=== PATIENT | male | born 1955 | race Caucasian/White ===

== ENCOUNTER 2018-05-19 12:24 | Emergency (ER) | payer BC, SELFPAY ==
[2018-05-19 12:28] VITALS: BP 82/44; PULSE 82; RESP 24; TEMP 36.5; O2SAT 94; BMI 40.3
[2018-05-19 12:36] VITALS: BMI 33.9
--- NOTE | 2018-05-19 12:37 | CT_ITS ---
, CT angio chest CT angio abdomen pelvis Additional processing and review on independent workstation Ordering Physician: Loy Keys MD Patient Age: 62 years: Male HISTORY: ITS.REASON: Pain left testicular pain left groin abdominal pain No significant mediastinal adenopathy nor hilar adenopathy. No pleural effusion. Ribs chest wall satisfactory. Degenerative disc changes upper T-spine otherwise T-spine unremarkable TECHNIQUE: CTA chest abdomen and pelvis performed Following bolus administration of 100 cc Isovue [address] thin section scanning performed through the chest abdomen pelvis and continuing to the groin.. No oral nor IV contrast utilized. Axial sagittal and coronal reconstructions performed on CT workstation. Additional reconstructions performed by Dr. Martin on radiologist workstation. ... [address] scans at this facility used one or more dose reduction techniques , viz: automatic exposure control, ma/Kv adjustment per patient's size, (including targeted exam where dose matched to the indication; i.e. head); or iterative reconstruction technique COMPARISON :None ======= CTA CHEST . Thoracic aorta normal caliber no aneurysm. No dissection. Pulmonary arteries are fairly well visualized and appears satisfactory. No pulmonary embolism. . Heart upper normal in size, borderline cardiomegaly.., coronary artery calcifications. No pericardial effusion. . Lungs. Bibasilar atelectasis and mild chronic changes throughout the lung brower bilaterally. Minimal density at lingula appears to be related to linear scarring anteriorly CTA ABDOMEN PELVIS Imaging continues to the abdomen and pelvis. No aortic aneurysm. There is mild to moderate crescentic atheromatous plaque at the posterior aspect of the aorta just above bifurcation. This yields estimated 35% cross section stenosis. Possibly up to 40%. Mild to moderate Atherosclerotic calcifications throughout the aorta and iliacs. The external and internal iliac arteries with minimal calcified plaque throughout.. The SMA and celiac artery widely patent. The right and left renal artery widely patent. No significant stenosis. ------- Liver spleen pancreas adrenals and kidneys with no significant findings. Small umbilical hernia. Moderate stool throughout colon, ileum and appendix normal.Generous stool throughout the left colon and sigmoid The significant finding this patient is .. Necrotizing fasciitis at left perineum: . extensive stippled gas throughout the subcutaneous tissues at the left perineum. This stippled gas collection extends posteriorly towards the buttocks, and anteriorly to the left hemiscrotum and then continues to the left inguinal canal up to the left inguinal ring. This line of stippled gas extending to the left hemiscrotum yields a rim of gas surrounding the left testicle. Left testicle has normal flow of subcutaneous ultrasound. There is soft tissue swelling at the left hemiscrotum. Possibly minimal fluid left hemiscrotum There is surprisingly modest reactive inflammation surrounding these areas of abnormal stippled gas at the.. And we do not see coalescence is would be seen with the mature abscess. No fluid levels are seen in these areas this this may have occurred relatively recently. Images were discussed with surgeon and ER physician. . On the CT workstation explored for any potential fistula or communication with the perirectal space or rectum and I do not identify such. This extensive area of stippled gas spans at least 17 cm AP if not greater, at the perineum itself. Additional 12-13 cm AP extension. Including the left hemiscrotum. IMPRESSION...... 1. Findings compatible with extensive Necrotizing Fasciitis There is extensive stippled gas
--- NOTE | 2018-05-19 12:46 | US_ITS ---
US scrotum Ordering Physician: Loy Keys MD Patient Age: 62 years: Male HISTORY: ITS.REASON: left scrotal swelling TECHNIQUE: Ultrasound both right left hemiscrotum COMPARISON :CT from today abdomen pelvis and including testicles FINDINGS . This study was used to confirm adequate color Doppler flow to both testicles. Particular attention directed to the LEFT TESTICLE Normal color doppler flow at the left testicleThis this was observed on with my scanning. The testicle itself measures up to 3.2 cm length x 2.5 cm. Head Epididymis appears normal on left. 9 mm. The body and tail the epididymis appears mildly thickened There is some swelling of the soft of the left hemiscrotum itself; and the tissue surrounding the left testicle. Also stippled gas yields shadowing surrounding the left testicle. RIGHT TESTICLE. Normal size with normal color Doppler flow. 3.6 cm in length. . Head of right epididymis measuring 9.3 x 7.5 mm with some scant fluid adjacent to it IMPRESSION: There is normal flow to both testicles. Specifically left testicle with normal color Doppler flow. This is a primary focus of this exam The left testicle demonstrates stippled gas are evident as seen on CT. On also note swelling and thickening of regional soft tissues at left hemiscrotum and about the left testicle. Body and tail of left epididymis appear somewhat edematous thickened .
--- NOTE | 2018-05-19 12:48 | [facility].EDGENADL ---
ED Disposition Clinical Impression: Cellulitis, scrotum, Diabetes, Systemic inflammatory response syndrome (SIRS), CAD (coronary artery disease), Renal insufficiency, Necrotizing fasciitis Disposition: Xfer Short-Term Hosp Condition on Discharge: Good Forms: Transfer Record - ED - Critical Care Critical Care Time: No Attestation: On , the high probability of a clinically significant, sudden or life threatening deterioration of the following system(s) required my full and direct attention, intervention and personal management. The time I documented below is in addition to time spent performing reported procedures but includes the following listed in this critical care notation. Total Critical Care Time: 30 Medical Decision Making - Aldo Inquiry Pt receiving controlled substance: No Aldo was queried for this patient: No Vital Signs: 05/19/18 12:28 05/19/18 12:50 05/19/18 13:04 Temperature 97.7 F 97.7 F Temperature Source Oral Oral Pulse Rate [Right Brachial] 82 77 73 Respiratory Rate 24 20 20 Blood Pressure [Right Arm] 82/44 88/56 96/67 Blood Pressure Mean [Right Arm] 56 66 76 Blood Pressure Source [Right Arm] Automatic Cuff Automatic Cuff Automatic Cuff Blood Pressure Position [Right Arm] Supine Sitting Supine 02 Sat by Pulse Oximetry 94 L 94 L 97 Oxygen Delivery Method Room Air Room Air Room Air 05/19/18 14:02 Temperature 97.7 F Temperature Source Oral Pulse Rate [Right Brachial] 67 Respiratory Rate 24 Blood Pressure [Right Arm] 81/39 Blood Pressure Mean [Right Arm] 53 Blood Pressure Source [Right Arm] Automatic Cuff Blood Pressure Position [Right Arm] Supine 02 Sat by Pulse Oximetry 86 L Oxygen Delivery Method Room Air - Lab Data Lab Results 05/19/18 12:35: WBC 25.3 H*, RBC 4.96, Hgb 15.0, Hct 45.1, MCV 90.8, MCH 30.1, MCHC 33.2, RDW 13.1, Plt Count 280, MPV 9.1, Neut % (Auto) 87.0 H, Lymph % (Auto) 4.6 L, Elbert % (Auto) 7.8, Eos % (Auto) 0.4, Baso % (Auto) 0.2, Neut # (Auto) 22.0 H, Lymph # (Auto) 1.2, Elbert # (Auto) 2.0 H, Eos # (Auto) 0.1, Baso # (Auto) 0.0, Total Counted 100, Neutrophils % (Manual) 86 H, Band Neutrophils % 1.0, Lymphocytes % (Manual) 6 L, Monocytes % (Manual) 7, Platelet Estimate Normal, RBC Morphology Normal 05/19/18 12:35: Sodium 128 L, Potassium 4.2, Chloride 94 L, Carbon Dioxide 21, Anion Gap 17.2 H, BUN 46 H, Creatinine 1.78 H, Estimated Creat Clear 69, Estimated GFR 39 L, Est GFR ( Amer) 47 L, Glucose 130 H, Calcium 8.4 L, Troponin I < 0.02, Amylase 28 05/19/18 12:35: Lactic Acid 2.5 H 05/19/18 12:35: Lipase 181 05/19/18 12:35: PT 11.4, INR 1.11 H, APTT 33.1 05/19/18 12:35: Total Bilirubin 1.2 H, Direct Bilirubin 0.5 H, Indirect Bilirubin 0.7, AST 68 H, ALT 49, Alkaline Phosphatase 143 H, Total Protein 7.2, Albumin 2.1 L Result diagrams: 05/19/18 12:35 05/19/18 12:35 Orders (Tests/Meds): ED MEDICATIONS Generic Name Dose Route Start Last Admin Trade Name Freq PRN Reason Stop Dose Admin Ertapenem 1 gm/ Sodium 50 mls @ 100 mls/hr 05/19/18 13:45 05/19/18 14:13 Chloride IV 06/02/18 13:44 100 mls/hr ONCE RANDY Administration Protocol Clindamycin Phosphate 900 mg/ 106 mls @ 100 mls/hr 05/19/18 14:13 05/19/18 14:21 Sodium Chloride IV 05/19/18 15:16 100 mls/hr ONCE ONE Administration Protocol Discontinued Medications Generic Name Dose Route Start Last Admin Trade Name Freq PRN Reason Stop Dose Admin Sodium Chloride 1,000 mls @ 999 mls/hr 05/19/18 13:00 05/19/18 12:58 Sod Chlor 0.9% 1000ml Bag IV 05/19/18 14:00 999 mls/hr .Q1H1M RANDY Administration Sodium Chloride 1,000 mls @ 999 mls/hr 05/19/18 13:00 05/19/18 12:59 Sod Chlor 0.9% 1000ml Bag IV 05/19/18 14:00 999 mls/hr .Q1H1M RANDY Administration Vancomycin HCl 1,000 mg/ 250 mls @ 125 mls/hr 05/19/18 14:13 05/19/18 14:26 Sodium Chloride IV 05/19/18 14:14
[2018-05-19 12:50] VITALS: BP 88/56; PULSE 77; RESP 20; TEMP 36.5; O2SAT 94
--- NOTE | 2018-05-19 12:55 | ED_ITS ---
ED Disposition Clinical Impression: Cellulitis, scrotum, Diabetes, Systemic inflammatory response syndrome (SIRS), CAD (coronary artery disease), Renal insufficiency, Necrotizing fasciitis Disposition: Xfer Short-Term Hosp Condition on Discharge: Good Forms: Transfer Record - ED - Critical Care Critical Care Time: No Attestation: On , the high probability of a clinically significant, sudden or life threatening deterioration of the following system(s) required my full and direct attention, intervention and personal management. The time I documented below is in addition to time spent performing reported procedures but includes the following listed in this critical care notation. Total Critical Care Time: 30 Medical Decision Making - Aldo Inquiry Pt receiving controlled substance: No Aldo was queried for this patient: No Vital Signs: 05/19/18 12:28 05/19/18 12:50 05/19/18 13:04 Temperature 97.7 F 97.7 F Temperature Source Oral Oral Pulse Rate [Right Brachial] 82 77 73 Respiratory Rate 24 20 20 Blood Pressure [Right Arm] 82/44 88/56 96/67 Blood Pressure Mean [Right Arm] 56 66 76 Blood Pressure Source [Right Arm] Automatic Cuff Automatic Cuff Automatic Cuff Blood Pressure Position [Right Arm] Supine Sitting Supine 02 Sat by Pulse Oximetry 94 L 94 L 97 Oxygen Delivery Method Room Air Room Air Room Air 05/19/18 14:02 Temperature 97.7 F Temperature Source Oral Pulse Rate [Right Brachial] 67 Respiratory Rate 24 Blood Pressure [Right Arm] 81/39 Blood Pressure Mean [Right Arm] 53 Blood Pressure Source [Right Arm] Automatic Cuff Blood Pressure Position [Right Arm] Supine 02 Sat by Pulse Oximetry 86 L Oxygen Delivery Method Room Air - Lab Data Lab Results 05/19/18 12:35: WBC 25.3 H*, RBC 4.96, Hgb 15.0, Hct 45.1, MCV 90.8, MCH 30.1, MCHC 33.2, RDW 13.1, Plt Count 280, MPV 9.1, Neut % (Auto) 87.0 H, Lymph % (Auto ) 4.6 L, [place] % (Auto) 7.8, Eos % (Auto) 0.4, Baso % (Auto) 0.2, Neut # (Auto) 22.0 H, Lymph # (Auto) 1.2, [place] # (Auto) 2.0 H, Eos # (Auto) 0.1, Baso # (Auto ) 0.0, Total Counted 100, Neutrophils % (Manual) 86 H, Band Neutrophils % 1.0, Lymphocytes % (Manual) 6 L, Monocytes % (Manual) 7, Platelet Estimate Normal, RBC Morphology Normal 05/19/18 12:35: Sodium 128 L, Potassium 4.2, Chloride 94 L, Carbon Dioxide 21, Anion Gap 17.2 H, BUN 46 H, Creatinine 1.78 H, Estimated Creat Clear 69, Estimated GFR 39 L, Est GFR ( Amer) 47 L, Glucose 130 H, Calcium 8.4 L, Troponin I < 0.02, Amylase 28 05/19/18 12:35: Lactic Acid 2.5 H 05/19/18 12:35: Lipase 181 05/19/18 12:35: PT 11.4, INR 1.11 H, APTT 33.1 05/19/18 12:35: Total Bilirubin 1.2 H, Direct Bilirubin 0.5 H, Indirect Bilirubin 0.7, AST 68 H, ALT 49, Alkaline Phosphatase 143 H, Total Protein 7.2, Albumin 2.1 L Result diagrams: 05/19/18 12:35 05/19/18 12:35 Orders (Tests/Meds): ED MEDICATIONS Generic Name Dose Route Start Last Admin Trade Name Freq PRN Reason Stop Dose Admin Ertapenem 1 gm/ Sodium 50 mls @ 100 mls/hr 05/19/18 13:45 05/19/18 14:13 Chloride IV 06/02/18 13:44 100 mls/hr ONCE RANDY Administration Protocol Clindamycin Phosphate 900 mg/ 106 mls @ 100 mls/hr 05/19/18 14:13 05/19/18 14 :21 Sodium Chloride IV 05/19/18 15:16 100 mls/hr ONCE ONE Adminis
[2018-05-19 13:04] VITALS: BP 96/67; PULSE 73; RESP 20; O2SAT 97
--- NOTE | 2018-05-19 13:05 | PC.NURSE ---
TO RADIOLOGY PER STRETCHER FOR CT SCAN
[2018-05-19 13:10] LABS: Alanine Aminotransferase 49 U/L (12-78); Albumin Level 2.1 gm/dL (3.4-5.0); Alkaline Phosphatase 143 U/L (46-116); Aspartate Amino Transferase 68 U/L (15-37); Bilirubin,Direct 0.5 mg/dL (0.0-0.2); Bilirubin,Indirect 0.7 mg/dL (0.0-0.9); Bilirubin,Total 1.2 mg/dL (0.2-1.0); Total Protein,Serum 7.2 gm/dL (6.4-8.2)
[2018-05-19 13:12] LABS: Amylase 28 U/L (25-125); Anion Gap 17.2 mEq/L (5-15); Blood Urea Nitrogen 46 mg/dL (7-18); Calcium 8.4 mg/dL (8.5-10.1); Carbon Dioxide 21 mmol/L (21.0-32.0); Chloride 94 mmol/L (98-107); Creatinine Clearance Estimated 69 mL/min (0-300); Creatinine,Serum 1.78 mg/dL (0.70-1.30); Estimated Glomerular Filt Rate 39 ml/min (>60); GFR (African American) 47 ML/MIN (>60); Glucose 130 mg/dL (74-106); Potassium 4.2 mmoL/L (3.5-5.1); Sodium 128 mmol/L (136-145); Troponin I < 0.02 ng/ml (0.00-0.06)
[2018-05-19 13:15] LABS: Lipase 181 u/L (73-393)
[2018-05-19 13:17] LABS: Lactic Acid 2.5 mmol/L (0.4-2.0)
[2018-05-19 13:20] LABS: Reflex Lactic Add Lactic Reflex
[2018-05-19 13:21] LABS: Basophils % 0.2 % (0.1-2.0); Eosinophils # 0.1 K/mm3 (0.0-0.4); Eosinophils % 0.4 % (0.1-12.0); Hematocrit 45.1 % (42.0-52.0); Lymphocytes # 1.2 K/mm3 (0.7-4.5); Lymphocytes % 4.6 K/mm3 (10-50); Mean Corpuscular HGB Conc 33.2 g/dL (31.8-35.4); Mean Corpuscular Hemoglobin 30.1 pg (27.0-31.2); Mean Corpuscular Volume 90.8 fl (80-94); Mean Platelet Volume 9.1 fl (7.4-10.4); Monocytes % 7.8 % (1.7-9.3); Platelet Count 280 K/mm3 (142-424); Red Blood Count 4.96 M/mm3 (4.60-6.20); Red Cell Distribution Width 13.1 % (11.5-17.5); White Blood Count 25.3 K/mm3 (4.8-10.8)
[2018-05-19 13:25] LABS: Activated Partial Thrombo Time 33.1 seconds (23.6-34.0); INR 1.11 (0.9-1.1); Prothrombin Time 11.4 seconds (9.4-11.8)
[2018-05-19 13:26] LABS: MANUAL DIFFERENTIAL MANUAL DIFFERENTIAL (MANUAL DIFF)
--- NOTE | 2018-05-19 13:52 | PC.NURSE ---
Addendum entered by Chinyere Mann RN 05/19/18 14:55: PATIENT ACCEPTED TO SERVICES DR CHINYERE CORREA AT [facility] Original Note: [facility] CALLED BY DR LUEVANO
[2018-05-19 14:02] VITALS: BP 81/39; PULSE 67; RESP 24; TEMP 36.5; O2SAT 86
[2018-05-19 14:06] LABS: Lymphocytes % 6 % (10-50); Monocytes % 7 % (2-9); Neutrophils % 86 % (42-76); Platelet Estimate Normal; RBC Morphology Normal; Total Cells Counted 100
--- NOTE | 2018-05-19 14:37 | PC.NURSE ---
[facility] notified of transfer
--- NOTE | 2018-05-19 14:56 | PC.NURSE ---
#16 FR HICKEY INSERTED USING STERILE TECHNIQUE WITH IMMEDIATE RETURN OF DARK YELLOW URINE. TOTAL OUPUT 500 ML. F/C ANCHORED TO BEDSIDE DRAIN
[2018-05-19 14:57] VITALS: BP 106/69; PULSE 77; RESP 20; TEMP 36.5; O2SAT 96
--- NOTE | 2018-05-19 14:57 | PC.NURSE ---
TRANSFERRED TO [facility] CONDITION ST[facility].
[2018-05-19 14:59] LABS: Microscopic, Urine URINE MICROSCOPIC (MICROSCOPIC)
[2018-05-19 15:02] LABS: Appearance,Urine CLEAR (Clear); Bilirubin,Urine Negative (Negative); Blood, Urine TRACE-I (Negative); Color,Urine YELLOW (Yellow); Glucose,Urine (UA) Negative (Negative); Ketones,Urine Negative (Negative); Leukocyte Esterase,Urine Negative (Negative); Nitrate,Urine Negative (Negative); PH,Urine 5.5 (5.0-8.5); Protein,Urine TRACE (Negative); Specific Gravity, Urine <= 1.005 (1.005-1.030)
[2018-05-19 15:15] LABS: Bacteria,Urine Trace /lpf; RBC,Urine Occasional #/hpf (0-3); WBC,Urine Occasional #/hpf (0-3)
--- NOTE | 2018-05-19 18:23 | PC.NURSE ---
faxed copies of all results to [phone] and his chart information.
== END 2018-05-19 15:02 | disposition short-term general hospital (02) ==
PROVIDERS: Emergency Provider Emergency Medicine
DX: N49.2 Inflammatory disorders of scrotum (principal); E11.9 Type 2 diabetes mellitus without complications; R65.10 Systemic inflammatory response syndrome (SIRS) of non-infectious origin without acute organ dysfunction; I25.10 Atherosclerotic heart disease of native coronary artery without angina pectoris; N28.9 Disorder of kidney and ureter, unspecified; M72.6 Necrotizing fasciitis; F17.210 Nicotine dependence, cigarettes, uncomplicated
CPT/HCPCS: 71275; 74174; 76870; 80048; 80076; 81001; 82150; 83605; 83690; 84484; 85007; 85025; 85610; 85730; 87040; 93005; 96365; 96366; 96367; 99285; J1335; J3370; Q9967